=== PATIENT | female | born 1955 | race African-American/Black ===

== ENCOUNTER 2016-11-28 05:54 | Day surgery (SDC) | payer OTHER ==
[2016-11-28] MEDS ORDERED: ceFAZolin 2 GM in NACL 0.9% 100 ML IV ONE (06:00)
[2016-11-28] MEDS ORDERED: NACL BACTERIOSTATIC INFILTRATI ONE (06:40)
[2016-11-28] MEDS ORDERED: ANCEF/STERILE WATER 2 GM/20 ML 2 GM/20 ML SYRINGE IV SCH (07:00)
--- NOTE | 2016-11-28 07:03 | Anesthesia Consultation ---
Anesthesia Consult and Med Hx Date of service: 11/28/16 (Excision of soft tissue mass by Dr. Tyler) - Airway Anesthetic Teeth Evaluation: Dentures (full) ROM Head & Neck: Adequate Mental/Hyoid Distance: Adequate Mallampati Class: Class III Intubation Access Assessment: Possibly Difficult - Pulmonary Exam CTA: Yes - Cardiac Exam Cardiac Exam: RRR - Pre-Operative Health Status ASA Pre-Surgery Classification: ASA2 Proposed Anesthetic Plan: General - Pre-Anesthesia Comment Pre-Anesthesia Comments: Pt speaks limited Setswana- son present for translation. Pt is NPO since [place]. No previous anesthesia complications. Pt evaluated by cardiology on 11/06/16 for SOB. EKG revealed SR with RBBB. Pt was scheduled for Echo/stress but awaiting insurance approval. Pt denies chest pain and states SOB resolved. - Pulmonary Hx Smoking: No Hx Asthma: No SOB: Yes (Improved) Hx Sleep Apnea: No - Cardiovascular System Hx Hypertension: Yes (FOR > 5 YRS, DR. JAMAL MARION- PCP) Hx Coronary Artery Disease: Yes (Pt reports told she had CAD in [place]- no further info) - Central Nervous System Hx Psychiatric Problems: No - Gastrointestinal Hx Ulcer: No - Endocrine Hx Renal Disease: No Hx Non-Insulin Dependent Diabetes: No - Hematic Hx Anemia: No - Other Systems Hx Alcohol Use: No Hx Substance Use: No Hx Cancer: No
[2016-11-28] MEDS ORDERED: SUBLIMAZE ONE (07:15)
[2016-11-28] MEDS ORDERED: DIPRIVAN 10 MG/ML IV ONE (07:15)
[2016-11-28] MEDS ORDERED: XYLOCAINE MPF 2% ONE (07:17)
[2016-11-28] MEDS ORDERED: VERSED IV NR (08:00)
[2016-11-28] MEDS ORDERED: PEPCID PO NR (08:00)
[2016-11-28] MEDS ORDERED: LACTATED RINGERS 1,000 ML IV SCH (08:00)
[2016-11-28] MEDS ORDERED: DILAUDID IV PRN (08:05)
[2016-11-28] MEDS ORDERED: PERCOCET 5/325 PO PRN (08:05)
--- NOTE | 2016-11-28 08:05 | Anesthesia Day of Surgery ---
Anesthesia Day of Surgery - Day of Surgery Patient Examined: Yes Patient H&P Reviewed: Yes Patient is NPO: Yes
[2016-11-28] MEDS ORDERED: ZOFRAN ONE (08:31)
[2016-11-28] MEDS ORDERED: DECADRON ONE (08:31)
[2016-11-28] MEDS ORDERED: NORMODYNE IV ONE (08:46)
[2016-11-28] MEDS ORDERED: NACL 0.9% IR ONE (08:49)
[2016-11-28] MEDS ORDERED: MARCAINE-EPI 0.25%-1:200,000 INFILTRATI ONE (08:49)
[2016-11-28] MEDS ORDERED: LACTATED RINGERS 1,000 ML ONE (09:08)
--- NOTE | 2016-11-28 09:28 | Post Operative Note ---
Pre-op diagnosis: soft tissue masses x2 Post-op diagnosis: same Findings: Lipoma Rt axilla / left hip area Procedure: Excision of STM x2 Anesthesia: GETA Surgeon: FLEX JAUREGUI Estimated blood loss: minimal Pathology: list (soft tissue masses x2) Specimen disposition: to lab Condition: stable Disposition: PACU
--- NOTE | 2016-11-28 09:30 | Discharge Summary ---
Short Stay Discharge Plan Weight Bearing Status: Full Weight Bearing Diet: regular Wound: change dressing (on11/30 from rt axilla - may shower daily) Follow up with: PRIMARY CARE,MD [Primary Care Provider] - 7 Days Prescriptions: HYDROcodone/APAP 5-325 [[place] 5-325 mg TAB] 1 each PO Q6HR PRN #20 tablet PRN Reason: Pain
--- NOTE | 2016-11-28 10:34 | Operative Report ---
PREOPERATIVE DIAGNOSIS: Soft tissue mass, right axilla and left lower quadrant abdomen/left hip. OPERATIVE PROCEDURE: Excision of soft tissue mass x 2. ANESTHESIA: General via laryngeal mask and local anesthetic consisting of 0.25% Marcaine with epinephrine. INDICATIONS: A 61-year-old female patient presenting with a visible and palpable soft tissue mass in the right axilla and left lower quadrant of the abdomen, closer to the anterior superior iliac spine for several years, gradually increasing in size but she has no pain, no discharge. FINDINGS: Subcutaneous lipoma. There was no discernible plane between the subcutaneous fatty tissue and the lipoma. It is extending into the axillary fossa. There is no evidence of accessory breast tissue, no evidence of lymphadenopathy in this mass. The left lower quadrant mass appears to be subcutaneous lipoma measuring 8 x 6 cm and lobulated and fatty tissue. No extension into the muscle. DESCRIPTION OF PROCEDURE: After satisfactory placement of a laryngeal mask, both areas were prepped and draped. Initially, the axillary mass was resected after making a crease incision including the subcutaneous fat extending into the deeper as far deep as possible, minimal bleeding controlled by cautery. Hemostasis was quite adequate. Subdermal tissue approximated with 3-0 Vicryl, skin with 4-0 Monocryl sutures. Specimen was sent for histopathological examination. The left hip/left lower quadrant mass was then removed using a local anesthetic along the crease incision for a length of 5 cm. The mass was completely removed and hemostasis was adequate and the wound was closed in 2 layers with 3-0 Vicryl and 4-0 Monocryl sutures. There was minimal blood loss and the specimen was sent separately for histopathological examination. She tolerated the procedure well, was extubated and transferred to postanesthesia care unit in satisfactory condition. JOB# [id number] EMILIANO/PERCY
--- NOTE | 2016-11-28 11:00 | Post Anesthesia Evaluation ---
- Post Anesthesia Evaluation Patient Participated: Yes Airway Patent: Yes Stable Respiratory Function: Yes Nausea/Vomiting: No Temp > 96.8F: Yes Pain Manageable: Yes Adequeate Hydration: Yes Anesthesia Complications: No Block Receding Appropriately: Not Applicable Patient on Ventilator: No
[2016-11-28 11:04] VITALS: BP 153/82
== END 2016-11-28 11:10 | disposition home or self-care (01) ==
LOC: OR 05:54
PROVIDERS: ATTEND Surgery
DX: D17.1 Benign lipomatous neoplasm of skin and subcutaneous tissue of trunk (principal); I25.10 Atherosclerotic heart disease of native coronary artery without angina pectoris; M19.90 Unspecified osteoarthritis, unspecified site; I10 Essential (primary) hypertension; E78.00 Pure hypercholesterolemia, unspecified; Z98.890 Other specified postprocedural states
CPT/HCPCS: 21552; 27043; 88307; J0690; J1100; J2250; J2405; J2704; J3010; J7120; 88304

== ENCOUNTER 2017-03-26 06:35 | Day surgery (SDC) | payer OTHER ==
--- NOTE | 2017-03-26 07:30 | Anesthesia Day of Surgery ---
Anesthesia Day of Surgery - Day of Surgery Patient Examined: Yes Patient H&P Reviewed: Yes Patient is NPO: Yes
--- NOTE | 2017-03-26 07:31 | Anesthesia Consultation ---
Anesthesia Consult and Med Hx Date of service: 03/26/17 - Airway Anesthetic Teeth Evaluation: Poor, Dentures ROM Head & Neck: Adequate Mental/Hyoid Distance: Adequate Mallampati Class: Class II Intubation Access Assessment: Probably Good - Pulmonary Exam CTA: Yes - Cardiac Exam Cardiac Exam: RRR - Pre-Operative Health Status ASA Pre-Surgery Classification: ASA3 - Pulmonary Hx Smoking: No Hx Asthma: No SOB: Yes (Improved) Hx Sleep Apnea: No - Cardiovascular System Hx Hypertension: Yes (FOR > 5 YRS, DR. JAMAL MARION- PCP) Hx Coronary Artery Disease: Yes (Pt reports told she had CAD in [place]- no further info) - Central Nervous System Hx Seizures: No CVA: No Hx Psychiatric Problems: No - Gastrointestinal Hx Ulcer: No - Endocrine Hx Renal Disease: No Hx Non-Insulin Dependent Diabetes: No - Hematic Hx Anemia: No - Other Systems Hx Cancer: No - Additional Comments Anesthesia Medical History Comments: NAC
[2017-03-26] MEDS ORDERED: DIPRIVAN 10 MG/ML IV ONE ×2 (07:32)
[2017-03-26] MEDS ORDERED: NACL 0.9% 1000 ML 1,000 ML IV SCH (09:00)
--- NOTE | 2017-03-26 09:17 | Short Stay Summary ---
Short Stay Documentation - Allergies and Medications Current Medications: Allergies No Known Allergies Allergy (Verified 03/24/17 13:19) Home Medications Medication Instructions Recorded Confirmed Last Taken Type Atenolol/Chlorthalidone [Tenoretic 1 tab PO QDAY 11/22/16 03/26/17 11/27/16 History 50-25] Omeprazole Magnesium [PriLOSEC Otc] 20 mg PO QDAY 11/22/16 03/26/17 11/27/16 History Pravastatin Sodium [Pravastatin] 20 mg PO QHS 11/22/16 03/26/17 11/27/16 History traMADol [Ultram 50 MG tab] 50 mg PO BID PRN 11/22/16 03/26/17 11/27/16 History HYDROcodone/APAP 5-325 [[place] 1 each PO Q6HR PRN #20 tablet 11/28/16 03/26/17 Unknown Rx 5-325 mg TAB] Active Medications Sodium Chloride (Nacl 0.9% 1000 Ml) 1,000 mls @ 50 mls/hr IV DIRECT TEDDY Last Admin: 03/26/17 08:30 Dose: 50 mls/hr - Brief post op/procedure progress note Date of procedure: 03/26/17 Pre-op diagnosis: Colon cancer screening Post-op diagnosis: same (1. Polyp/Polypoid mass sigmoid colon 2. Internal hemorrhoids) Procedure: Colonoscopy with snare polypectomy Anesthesia: MAC Findings: as above Surgeon: BHASKAR HENSLEY Estimated blood loss: none Pathology: list (1. Sigmoid colon polyp) Specimen disposition: to lab Condition: stable - Disposition Condition at discharge: Stable Disposition: DC-01 TO HOME OR SELFCARE Short Stay Discharge Plan Activity: no restrictions Diet: regular Follow up with: PRIMARY CARE, [Primary Care Provider] - 7 Days
[2017-03-26 09:36] VITALS: BP 133/64
== END 2017-03-26 06:36 | disposition home or self-care (01) ==
LOC: GIO 06:35
PROVIDERS: ATTEND Internal Medicine Gastroenterology
DX: Z12.11 Encounter for screening for malignant neoplasm of colon (principal); D12.5 Benign neoplasm of sigmoid colon; K64.8 Other hemorrhoids; I10 Essential (primary) hypertension; I25.10 Atherosclerotic heart disease of native coronary artery without angina pectoris; Z79.899 Other long term (current) drug therapy
CPT/HCPCS: 45385; 88305; J2704; J7030